=== PATIENT | female | born 1995 | race African-American/Black ===

== ENCOUNTER 2019-05-08 06:56 | Emergency (ER) | payer BC ==
[~2019-05-08] VITALS: Ht 162.6 cm; Wt 96.2 kg
[~2019-05-08 06:56] MED LIST: LOPERAMIDE 2 MG2 M1 PO; ONDANSETRON HCL4 M2 PO
[2019-05-08] MEDS ORDERED: PREDNISONE 10 M10 MG PO (09:30)
[2019-05-08] MEDS ORDERED: BENADRYL25 MG PO (09:30)
[2019-05-08] MEDS ORDERED: EPIPEN0.3 MG/0.1 IM (09:36)
[2019-05-08 10:02] VITALS: BP 108/62
== END 2019-05-08 10:04 | disposition home or self-care (01) ==
LOC: ER 06:56
DX: T78.49XA Other allergy, initial encounter (principal); H02.843 Edema of right eye, unspecified eyelid; H02.846 Edema of left eye, unspecified eyelid; R22.0 Localized swelling, mass and lump, head